=== PATIENT | female | born 1990 | race Caucasian/White ===

== ENCOUNTER 2016-10-06 21:08 | Emergency (ER) | payer BC ==
[~2016-10-06 21:08] MED LIST: COL100 PO; MOTRIN800 MG PO; ROX5 PO; ZOFRAN8 MG PO
[2016-10-07 00:12] VITALS: BP 113/75
== END 2016-10-07 00:14 | disposition home or self-care (01) ==
LOC: ED 21:08
DX: N83.209 Unspecified ovarian cyst, unspecified side (principal); J45.909 Unspecified asthma, uncomplicated; Z88.8 Allergy status to other drugs, medicaments and biological substances
CPT/HCPCS: J1885

== ENCOUNTER 2016-11-04 00:08 | Emergency (ER) | payer BC ==
[2016-11-04 04:12] VITALS: BP 112/58
== END 2016-11-04 04:12 | disposition home or self-care (01) ==
LOC: ED 00:08
DX: R10.32 Left lower quadrant pain (principal); J45.909 Unspecified asthma, uncomplicated; Z87.42 Personal history of other diseases of the female genital tract
CPT/HCPCS: J1885

== ENCOUNTER 2016-12-20 06:45 | Emergency (ER) | payer BC, OTHER ==
[~2016-12-20] VITALS: Ht 154.9 cm; Wt 73.5 kg
[2016-12-20 08:53] VITALS: BP 115/78
== END 2016-12-20 08:53 | disposition home or self-care (01) ==
LOC: ED 06:45
DX: J20.9 Acute bronchitis, unspecified (principal); J45.901 Unspecified asthma with (acute) exacerbation; Z79.51 Long term (current) use of inhaled steroids; Z88.8 Allergy status to other drugs, medicaments and biological substances
CPT/HCPCS: J1885; J7613; J7644; Q0162

== ENCOUNTER 2017-12-13 04:19 | Emergency (ER) | payer BC, OTHER ==
[~2017-12-13] VITALS: Ht 154.9 cm; Wt 82.2 kg
[2017-12-13 04:24] VITALS: Ht 154.9 cm; Wt 82.2 kg
[2017-12-13 04:56] VITALS: BP 124/75
== END 2017-12-13 04:56 | disposition home or self-care (01) ==
LOC: ED 04:19
DX: N39.0 Urinary tract infection, site not specified (principal); J45.909 Unspecified asthma, uncomplicated; Z88.6 Allergy status to analgesic agent

== ENCOUNTER 2017-12-25 21:48 | Emergency (ER) | payer BC, OTHER ==
[~2017-12-25] VITALS: Ht 154.9 cm; Wt 78.5 kg
[2017-12-25 21:57] VITALS: Ht 154.9 cm; Wt 78.5 kg
[2017-12-26 00:03] VITALS: BP 113/59
== END 2017-12-26 00:03 | disposition home or self-care (01) ==
LOC: ED 21:48
DX: J45.901 Unspecified asthma with (acute) exacerbation (principal); Z88.8 Allergy status to other drugs, medicaments and biological substances
CPT/HCPCS: J2930; J7620

== ENCOUNTER 2018-01-26 23:41 | Emergency (ER) | payer BC, OTHER ==
[~2018-01-26] VITALS: Ht 154.9 cm; Wt 86.2 kg
[2018-01-26 23:49] VITALS: Ht 154.9 cm; Wt 86.2 kg
[2018-01-27 01:57] LABS: BASOPHIL % 0.6 % (0-2); PLATELET COUNT 336 x10^3mcL (130-400)
[2018-01-27 01:58] LABS: RED CELL DISTRIBUTION WIDTH 15.2 % (11.5-14.5)
[2018-01-27 02:08] LABS: CALCIUM 8.9 mg/dL (8.5-10.1); CARBON DIOXIDE 27.9 mmol/L (21-32); CHLORIDE SERUM 103 mmol/L (98-107); CREATININE SERUM 0.7 mg/dL (0.6-1.0); GFR1 > 60 mL/min; GLUCOSE SERUM 89 mg/dL (74-106); POTASSIUM SERUM 3.9 mmol/L (3.5-5.1); SODIUM SERUM 136 mmol/L (136-145)
[2018-01-27 02:36] LABS: UA SPECIFIC GRAVITY <=1.005 (1.005-1.035); microscopic required? YES; urine erythrocyte 3+ (NEGATIVE)
[2018-01-27 06:39] VITALS: BP 107/63
== END 2018-01-27 06:39 | disposition home or self-care (01) ==
LOC: ED 23:41
PROVIDERS: Emergency Medicine
DX: O03.9 Complete or unspecified spontaneous abortion without complication (principal)
CPT/HCPCS: J2270

== ENCOUNTER 2018-05-16 22:14 | Emergency (ER) | payer BC, OTHER ==
[~2018-05-16] VITALS: Ht 154.9 cm; Wt 93.0 kg
[2018-05-16 22:41] VITALS: Ht 154.9 cm; Wt 93.0 kg
[2018-05-17 00:29] VITALS: BP 112/67
[2018-05-17 01:06] LABS: BASOPHIL % 0.6 % (0-2); PLATELET COUNT 318 x10^3mcL (130-400); RED CELL DISTRIBUTION WIDTH 14.4 % (11.5-14.5)
== END 2018-05-17 01:21 | disposition home or self-care (01) ==
LOC: ED 22:14
PROVIDERS: Emergency Medicine
DX: N93.8 Other specified abnormal uterine and vaginal bleeding (principal); J45.909 Unspecified asthma, uncomplicated; Z88.6 Allergy status to analgesic agent
CPT/HCPCS: 36415; J1885

== ENCOUNTER 2018-06-12 23:29 | Emergency (ER) | payer OTHER ==
[~2018-06-12] VITALS: Ht 157.5 cm; Wt 92.1 kg
[2018-06-12 23:39] VITALS: Ht 157.5 cm; Wt 92.1 kg
[2018-06-13 02:01] VITALS: BP 105/78
[2018-06-13 02:03] LABS: UA SPECIFIC GRAVITY 1.015 (1.005-1.035); microscopic required? YES; urine erythrocyte NEGATIVE (NEGATIVE)
== END 2018-06-13 02:01 | disposition home or self-care (01) ==
LOC: ED 23:29
PROVIDERS: Emergency Medicine
DX: N39.0 Urinary tract infection, site not specified (principal); J45.909 Unspecified asthma, uncomplicated; Z88.8 Allergy status to other drugs, medicaments and biological substances; Z98.890 Other specified postprocedural states
CPT/HCPCS: 87491; 87591; J1885

== ENCOUNTER 2018-07-12 00:11 | Emergency (ER) | payer BC, OTHER ==
[~2018-07-12] VITALS: Ht 154.9 cm; Wt 92.5 kg
[2018-07-12 00:17] VITALS: BP 107/48; Ht 154.9 cm; Wt 92.5 kg
== END 2018-07-12 02:08 | disposition home or self-care (01) ==
LOC: ED 00:11
DX: J45.901 Unspecified asthma with (acute) exacerbation (principal); N83.209 Unspecified ovarian cyst, unspecified side; Z88.6 Allergy status to analgesic agent
CPT/HCPCS: 87804; J7512; J7613; J7644; Q0092

== ENCOUNTER 2018-08-05 19:13 | Emergency (ER) | payer BC, OTHER ==
[~2018-08-05] VITALS: Ht 154.9 cm; Wt 93.6 kg
[2018-08-05 19:24] VITALS: Ht 154.9 cm; Wt 93.6 kg
[2018-08-05 22:00] VITALS: BP 125/86
== END 2018-08-05 22:00 | disposition home or self-care (01) ==
LOC: ED 19:13
DX: R21 Rash and other nonspecific skin eruption (principal); J45.909 Unspecified asthma, uncomplicated; Z88.6 Allergy status to analgesic agent
CPT/HCPCS: J7512; Q0163

== ENCOUNTER 2018-10-07 17:36 | Emergency (ER) | payer OTHER ==
[~2018-10-07] VITALS: Ht 154.9 cm; Wt 93.9 kg
[2018-10-07 17:39] VITALS: Ht 154.9 cm; Wt 93.9 kg
[2018-10-07 19:45] LABS: CARBON DIOXIDE 26.8 mmol/L (21-32); CHLORIDE SERUM 101 mmol/L (98-107); CREATININE SERUM 0.7 mg/dL (0.6-1.0); GFR1 > 60 mL/min; GLUCOSE SERUM 90 mg/dL (74-106); POTASSIUM SERUM 3.1 mmol/L (3.5-5.1); SODIUM SERUM 140 mmol/L (136-145)
[2018-10-07 19:52] LABS: ALKALINE PHOSPHATASE 71 U/L (46-116); ALT/SGPT 36 U/L (14-59); AST/SGOT 24 U/L (15-37); BILIRUBIN TOTAL 0.4 mg/dL (0.20-1.00); TOTAL PROTEIN, SERUM 8.2 g/dL (6.4-8.2)
[2018-10-07 19:58] LABS: BASOPHIL % 0.2 % (0-2); PLATELET COUNT 302 x10^3mcL (130-400); RED CELL DISTRIBUTION WIDTH 14.7 % (11.5-14.5)
[2018-10-07 22:36] VITALS: BP 110/77
== END 2018-10-07 22:36 | disposition home or self-care (01) ==
LOC: ED 17:36
PROVIDERS: Emergency Medicine
DX: N83.202 Unspecified ovarian cyst, left side (principal); N83.201 Unspecified ovarian cyst, right side; R10.30 Lower abdominal pain, unspecified; J45.909 Unspecified asthma, uncomplicated; Z88.6 Allergy status to analgesic agent
CPT/HCPCS: J1885; J2270; J2405; Q9967

== ENCOUNTER 2018-11-26 15:01 | Emergency (ER) | payer OTHER ==
[~2018-11-26] VITALS: Ht 154.9 cm; Wt 96.6 kg
[2018-11-26 15:13] VITALS: Ht 154.9 cm; Wt 96.6 kg
[2018-11-26 18:43] VITALS: BP 127/83
== END 2018-11-26 18:43 | disposition home or self-care (01) ==
LOC: ED 15:01
DX: K11.20 Sialoadenitis, unspecified (principal); I88.9 Nonspecific lymphadenitis, unspecified; J45.909 Unspecified asthma, uncomplicated; Z98.890 Other specified postprocedural states; Z88.6 Allergy status to analgesic agent
CPT/HCPCS: J1885; J2270; Q0162

== ENCOUNTER 2019-03-07 12:41 | Emergency (ER) | payer OTHER ==
[~2019-03-07] VITALS: Ht 154.9 cm; Wt 89.4 kg
[2019-03-07 12:59] VITALS: Ht 154.9 cm; Wt 89.4 kg
[2019-03-07 15:16] VITALS: BP 120/75
== END 2019-03-07 15:16 | disposition home or self-care (01) ==
LOC: ED 12:41
DX: O21.9 Vomiting of pregnancy, unspecified (principal); J45.909 Unspecified asthma, uncomplicated; Z88.6 Allergy status to analgesic agent; Z3A.01 Less than 8 weeks gestation of pregnancy

== ENCOUNTER 2019-05-21 00:08 | Emergency (ER) | payer OTHER ==
[~2019-05-21] VITALS: Ht 154.9 cm; Wt 89.8 kg
[2019-05-21 00:14] VITALS: Ht 154.9 cm; Wt 89.8 kg
[2019-05-21 01:51] LABS: BASOPHIL % 0.4 % (0-2); PLATELET COUNT 323 x10^3mcL (130-400); RED CELL DISTRIBUTION WIDTH 14.8 % (11.5-14.5)
[2019-05-21 02:07] LABS: CALCIUM 8.5 mg/dL (8.5-10.1); CARBON DIOXIDE 29.8 mmol/L (21-32); CHLORIDE SERUM 106 mmol/L (98-107); CREATININE SERUM 0.8 mg/dL (0.6-1.0); GFR1 > 60 mL/min; GLUCOSE SERUM 89 mg/dL (74-106); POTASSIUM SERUM 3.5 mmol/L (3.5-5.1); SODIUM SERUM 142 mmol/L (136-145)
[2019-05-21 02:12] LABS: ALBUMIN 3.6 g/dL (3.4-5.0); ALKALINE PHOSPHATASE 87 U/L (46-116); ALT/SGPT 35 U/L (14-59); AMYLASE 56 U/L (25-115); AST/SGOT 12 U/L (15-37); BILIRUBIN TOTAL 0.24 mg/dL (0.20-1.00); LIPASE 148 IU/L (73-393); TOTAL PROTEIN, SERUM 7.8 g/dL (6.4-8.2)
[2019-05-21 05:26] VITALS: BP 108/74
== END 2019-05-21 05:26 | disposition home or self-care (01) ==
LOC: ED 00:08
PROVIDERS: Emergency Medicine
DX: O03.9 Complete or unspecified spontaneous abortion without complication (principal); J45.909 Unspecified asthma, uncomplicated
CPT/HCPCS: J2270

== ENCOUNTER 2019-06-28 17:03 | Emergency (ER) | payer OTHER ==
[~2019-06-28] VITALS: Ht 154.9 cm; Wt 87.1 kg
[2019-06-28 17:29] VITALS: Ht 154.9 cm; Wt 87.1 kg
[2019-06-28 18:10] LABS: BASOPHIL % 0.3 % (0-2); PLATELET COUNT 332 x10^3mcL (130-400); RED CELL DISTRIBUTION WIDTH 14.1 % (11.5-14.5)
[2019-06-28 19:31] LABS: microscopic required? YES; urine erythrocyte 3+ (NEGATIVE)
[2019-06-28 22:04] VITALS: BP 114/65
== END 2019-06-28 22:04 | disposition home or self-care (01) ==
LOC: ED 17:03
PROVIDERS: Emergency Medicine
DX: N83.202 Unspecified ovarian cyst, left side (principal); N93.9 Abnormal uterine and vaginal bleeding, unspecified; J45.909 Unspecified asthma, uncomplicated
CPT/HCPCS: 36415; J1885

== ENCOUNTER 2019-06-30 05:04 | Inpatient (IN) | payer OTHER ==
[~2019-06-30] VITALS: Ht 154.9 cm; Wt 88.5 kg
[2019-06-30 05:29] VITALS: Ht 154.9 cm; Wt 88.5 kg
--- NOTE | 2019-06-30 07:05 | NUR ---
PT AMBULATORY TO HALLWAY 1 BED. PT C/O BLQ ABD PAIN DENIES N/V/D PT IN NO APPARENT DISTRESS AWAITING MD OLIVA WILL MONITOR
[2019-06-30 07:12] LABS: BASOPHIL % 0.3 % (0-2); PLATELET COUNT 324 x10^3mcL (130-400); RED CELL DISTRIBUTION WIDTH 14.5 % (11.5-14.5)
[2019-06-30 07:37] LABS: CALCIUM 8.5 mg/dL (8.5-10.1); CARBON DIOXIDE 28.8 mmol/L (21-32); CHLORIDE SERUM 104 mmol/L (98-107); CREATININE SERUM 0.8 mg/dL (0.6-1.0); GFR1 > 60 mL/min; GLUCOSE SERUM 92 mg/dL (74-106); POTASSIUM SERUM 3.4 mmol/L (3.5-5.1); SODIUM SERUM 140 mmol/L (136-145)
[2019-06-30 07:42] LABS: ALBUMIN 3.8 g/dL (3.4-5.0); ALKALINE PHOSPHATASE 83 U/L (46-116); ALT/SGPT 32 U/L (14-59); AST/SGOT 17 U/L (15-37); BILIRUBIN TOTAL 0.19 mg/dL (0.20-1.00); TOTAL PROTEIN, SERUM 7.7 g/dL (6.4-8.2)
--- NOTE | 2019-06-30 08:40 | NUR ---
PT MOVED TO ORTHO ROOM, IV ESTABLISHED, MEDICATED FOR PAIN ORDERED BY MD CARLOS DANIELS. PT WITH NO RELIEF CRYING STATES PAIN IS 10/10. DR PIERSON MADE AWARE. NO NEW ORDERS AT THIS TIME.
--- NOTE | 2019-06-30 08:54 | NUR ---
PORTABLE CXR AT BEDSIDE. PT MEDICATED WITH FENTANYL 75MCG IVP ORDERED BY MD. WILL MONITOR PT
--- NOTE | 2019-06-30 09:15 | NUR ---
PT SITTING IN BED APPEARS MORE COMFORTABLE. PT NO LONGER CRYING ON HER CELL PHONE DEVICE. WILL CONTINUE TO MONITOR
[2019-06-30] MEDS ORDERED: NORCO1 TA2 PO (10:06)
[2019-06-30] MEDS ORDERED: PROAIR HFA8.5 GM (10:07)
[2019-06-30] MEDS ORDERED: SYMBICORT1 AE3 (10:07)
--- NOTE | 2019-06-30 10:15 | NUR ---
REPORT GIVEN TO ANG MARTINEZ RESUMING CARE OF PT
--- NOTE | 2019-06-30 10:15 | NUR ---
REPORT TAKEN FROM [facility] NURSE, PATIENT ROOM PREP COMPLETE, PENDING PATIENT ARRIVAL TO UNIT
[2019-06-30 10:17] LABS: microscopic required? NO
--- NOTE | 2019-06-30 10:20 | NUR ---
PT TRANSPORTED TO MED SURG FLOOR VIA W/C IN NO DISTRESS BY LITTLE ESCALERA. ANG MARTINEZ RESUMING CARE OF PT
--- NOTE | 2019-06-30 10:20 | NUR ---
PATIENT ARRIVED TO THE UNIT AT THIS TIME, IN WHEELCHAIR BUT AMBULATORY TO THE BED.
[2019-06-30 10:32] LABS: UA SPECIFIC GRAVITY >=1.030 (1.005-1.035); urine erythrocyte NEGATIVE (NEGATIVE)
[2019-06-30 10:51] VITALS: BP 113/69
[2019-06-30 10:52] LABS: CHOLESTEROL/HDL RATIO 3.2; MAGNESIUM 2.3 mg/dL (1.8-2.4); PHOSPHOROUS 3.4 mg/dL (2.5-4.9)
[2019-06-30 10:57] LABS: T3 TOTAL 1.16 ng/mL
[2019-06-30 11:26] LABS: FREE T4 1.07 ng/dL (0.76-1.46); FREE THYROXINE INDEX 3.2 ug/dL (1.4-4.5); T4(THYROXINE) 8.5 ug/dL (4.7-13.3)
[2019-06-30 12:53] VITALS: BP 113/69
[2019-06-30 16:14] VITALS: BP 96/52
--- NOTE | 2019-06-30 19:07 | NUR ---
REPORT GIVEN TO GUEST EXPERIENCE REPRESENTATIVE NURSE CARE ENDORSED
--- NOTE | 2019-06-30 19:59 | NUR ---
Awake and verbally responsive. No respiratory distress noted on room air. Denies pain at this time. Denies n/v. SCD in place. Will cont.to monitor. Calll light within reach.
[2019-06-30 20:44] VITALS: BP 103/62
--- NOTE | 2019-06-30 20:59 | NUR ---
Pt. up and ambulating. Epressing wanting to go home. Stated will sign out AMA. made aware. Will speak with the patient.
--- NOTE | 2019-06-30 21:42 | NUR ---
Spoke with the patient and decided to stay for the night. C/o lower abdominal pain, medicated with norco 1 tab as ordered. Will cont.to monitor.
--- NOTE | 2019-07-01 04:39 | NUR ---
Afebrile. No significant change in condition noted. Pain controlled. Denies dysuria or hematuria. In no apparent distress.
[2019-07-01 05:18] VITALS: BP 92/54
[2019-07-01 07:13] LABS: BASOPHIL % 0.8 % (0-2); PLATELET COUNT 278 x10^3mcL (130-400); RED CELL DISTRIBUTION WIDTH 14.4 % (11.5-14.5)
[2019-07-01 07:36] LABS: CALCIUM 8.2 mg/dL (8.5-10.1); CARBON DIOXIDE 26.9 mmol/L (21-32); CHLORIDE SERUM 106 mmol/L (98-107); CREATININE SERUM 0.7 mg/dL (0.6-1.0); GFR1 > 60 mL/min; GLUCOSE SERUM 80 mg/dL (74-106); POTASSIUM SERUM 3.5 mmol/L (3.5-5.1); SODIUM SERUM 140 mmol/L (136-145)
[2019-07-01 08:50] VITALS: BP 102/55
--- NOTE | 2019-07-01 09:24 | NUR ---
PATIENT RECEIVED SLEEPING AND SEEMS COMFORTABLE AT THIS TIME BUT IS NOW REQUESTING NORCO FOR PAIN. GAVE NORCO AND HER OTHER MEDICATIONS ORDERED AND WILL MONTIOE FOR EFFECTIVENESS. PATEINT IS GROSSLY OBESE AND WITH CLEAR BREATH SOUND AND BOWEL SOUNDS ACTIVE. SHE STATES THE PAIN IS TO HER LOWER ABDOMEN AND DUE TO OVARIAN CYSTS. SHE HAS BEEN TREATED IN THE PAST FOR THIS AND HAS APPARENTLY BEEN NON COMPLIANT WITH THE MEDICATION REGIMENT. PATIENT HAS SOME TRACE EDEMA TO THE LOWER EXTREMITES AND THE ABDOMEN IS DISTENDED AND LARGE AND MODERATELY FIRM. VITALS AT THIS TIME AT 98.0, 78, 18, 92/54, 98% ON ROOMAIR. CHEST XRAY WAS NEGATIVFE AND HAS HX OF ASTHMA BUT NO WHEEZING OR SHORTNESS OF BREATH AT THIS TIME.
[2019-07-01] MEDS ORDERED: MOT800 PO (11:16)
--- NOTE | 2019-07-01 11:29 | NUR ---
PATIENT REQUESTED MORE PAIN MEDICAITON AND ADVISE DTHAT NORCO WAS NOT DUE TILL AROUND NOON. PATIENT HAS BEEN DISCHARGED AND STATES SHE HAS NO RIDE TILL AROUNG EIGHT TONIGHT. WILL CONTINUE TO MONITOR.
[2019-07-01 11:48] VITALS: BP 102/55
[2019-07-01 12:13] VITALS: BP 102/59
--- NOTE | 2019-07-01 12:47 | NUR ---
PATIENT REQUESTED PAIN MEDICATION FOR PAIN TO THE LOWER ABDOMEN. OFFERED AND GAVE NORCO ORDERED.
--- NOTE | 2019-07-01 12:59 | NUR ---
PATIENT HAS NO PADILLA FOR HER HOME WITH HER AND THEY LEAVE OUT SENDING HER HOME BY A VOUCHER. WILL MONITOR FOR EFFECTIVENESS OF THE NORCO GIVEN. PATIENT STATES SHE IS ON A LOW CARB DIET. PER PATIENT SHE RELAYED THIS TO THE GRAY MIXING OPERATOR.
--- NOTE | 2019-07-01 17:37 | NUR ---
SPOUSE CAME IN AT 1630 AND PATIENT WANTS TO GO HOME. REMOVED IV AND WENT OVER PAPERWORK AND DISCHARGE TO HOME WITH ALL BELONINGS.
== END 2019-07-01 17:15 | disposition home or self-care (01) | DRG 532 ==
LOC: ED 05:04 → MU 09:51
PROVIDERS: ADMIT General Practice
DX: N83.209 Unspecified ovarian cyst, unspecified side (principal); E66.9 Obesity, unspecified; J45.909 Unspecified asthma, uncomplicated; Z68.36 Body mass index [BMI] 36.0-36.9, adult; Z71.3 Dietary counseling and surveillance
CPT/HCPCS: 84439; G0378; J2270; J2405; J3010; J7030; Q0092

== ENCOUNTER 2020-02-07 21:24 | Emergency (ER) | payer OTHER ==
[~2020-02-07] VITALS: Ht 154.9 cm; Wt 81.6 kg
[~2020-02-07 21:24] MED LIST changes: +MOT800 PO; +NORCO1 TA2 PO; +PROAIR HFA8.5 GM; +SYMBICORT1 AE3
[2020-02-07 21:38] VITALS: Ht 154.9 cm; Wt 81.6 kg
[2020-02-08 02:52] VITALS: BP 101/69
== END 2020-02-08 02:52 | disposition home or self-care (01) ==
LOC: ED 21:24
DX: N83.202 Unspecified ovarian cyst, left side (principal); N83.201 Unspecified ovarian cyst, right side; J45.909 Unspecified asthma, uncomplicated
CPT/HCPCS: J1885; Q0092

== ENCOUNTER 2020-03-18 17:27 | Emergency (ER) | payer BC, OTHER ==
[~2020-03-18] VITALS: Ht 154.9 cm; Wt 81.6 kg
[2020-03-18 18:18] VITALS: Ht 154.9 cm; Wt 81.6 kg
[2020-03-18 19:37] LABS: BASOPHIL % 0.5 % (0-2); PLATELET COUNT 318 x10^3mcL (130-400)
[2020-03-18 19:38] LABS: RED CELL DISTRIBUTION WIDTH 14.7 % (11.5-14.5)
[2020-03-18 20:03] LABS: CALCIUM 9.2 mg/dL (8.5-10.1); CARBON DIOXIDE 30.1 mmol/L (21-32); CHLORIDE SERUM 102 mmol/L (98-107); CREATININE SERUM 0.8 mg/dL (0.6-1.0); GFR1 > 60 mL/min; GLUCOSE SERUM 81 mg/dL (74-106); POTASSIUM SERUM 4.3 mmol/L (3.5-5.1); SODIUM SERUM 137 mmol/L (136-145)
[2020-03-18 20:09] LABS: ALBUMIN 3.8 g/dL (3.4-5.0); ALKALINE PHOSPHATASE 86 U/L (46-116); ALT/SGPT 28 U/L (14-59); AST/SGOT 17 U/L (15-37); BILIRUBIN TOTAL 0.22 mg/dL (0.20-1.00); TOTAL PROTEIN, SERUM 8.1 g/dL (6.4-8.2)
[2020-03-18 21:13] LABS: microscopic required? NO
[2020-03-18 21:29] LABS: UA SPECIFIC GRAVITY 1.025 (1.005-1.035); urine erythrocyte NEGATIVE (NEGATIVE)
[2020-03-19 00:21] VITALS: BP 117/80
== END 2020-03-19 00:21 | disposition home or self-care (01) ==
LOC: ED 17:27
PROVIDERS: Emergency Medicine
DX: R10.30 Lower abdominal pain, unspecified (principal); R10.2 Pelvic and perineal pain; R07.89 Other chest pain; J45.909 Unspecified asthma, uncomplicated; E66.9 Obesity, unspecified; Z68.34 Body mass index [BMI] 34.0-34.9, adult
CPT/HCPCS: J1885; Q0092

== ENCOUNTER 2020-05-06 11:11 | Emergency (ER) | payer BC, OTHER ==
[~2020-05-06] VITALS: Ht 154.9 cm; Wt 81.2 kg
[2020-05-06 11:48] VITALS: Ht 154.9 cm; Wt 81.2 kg
[2020-05-06 14:16] LABS: BASOPHIL % 0.3 % (0-2); PLATELET COUNT 303 x10^3mcL (130-400); RED CELL DISTRIBUTION WIDTH 14.2 % (11.5-14.5)
[2020-05-06 14:20] LABS: CARBON DIOXIDE 30.8 mmol/L (21-32); CHLORIDE SERUM 102 mmol/L (98-107); CREATININE SERUM 0.7 mg/dL (0.6-1.0); GFR1 > 60 mL/min; GLUCOSE SERUM 86 mg/dL (74-106); POTASSIUM SERUM 3.7 mmol/L (3.5-5.1); SODIUM SERUM 140 mmol/L (136-145)
[2020-05-06 14:25] LABS: ALBUMIN 4.1 g/dL (3.4-5.0); ALKALINE PHOSPHATASE 90 U/L (46-116); ALT/SGPT 25 U/L (14-59); AST/SGOT 17 U/L (15-37); BILIRUBIN TOTAL 0.22 mg/dL (0.20-1.00)
[2020-05-06 14:26] LABS: TOTAL PROTEIN, SERUM 8.7 g/dL (6.4-8.2)
[2020-05-06 15:55] LABS: UA SPECIFIC GRAVITY 1.025 (1.005-1.035); microscopic required? YES; urine erythrocyte TRACE (NEGATIVE)
[2020-05-06 16:58] VITALS: BP 113/67
== END 2020-05-06 16:58 | disposition home or self-care (01) ==
LOC: ED 11:11
PROVIDERS: Emergency Medicine
DX: R10.30 Lower abdominal pain, unspecified (principal); J45.909 Unspecified asthma, uncomplicated

== ENCOUNTER 2020-06-01 11:09 | Emergency (ER) | payer BC, OTHER ==
[~2020-06-01] VITALS: Ht 154.9 cm; Wt 79.8 kg
[2020-06-01 11:15] VITALS: Ht 154.9 cm; Wt 79.8 kg
[2020-06-01 13:03] LABS: CALCIUM 8.6 mg/dL (8.5-10.1); CARBON DIOXIDE 27.6 mmol/L (21-32); CHLORIDE SERUM 103 mmol/L (98-107); CREATININE SERUM 0.7 mg/dL (0.6-1.0); GFR1 > 60 mL/min; GLUCOSE SERUM 100 mg/dL (74-106); SODIUM SERUM 138 mmol/L (136-145)
[2020-06-01 13:07] LABS: ALBUMIN 3.6 g/dL (3.4-5.0); ALKALINE PHOSPHATASE 74 U/L (46-116); ALT/SGPT 22 U/L (14-59); AST/SGOT 15 U/L (15-37); BILIRUBIN TOTAL 0.4 mg/dL (0.20-1.00); LIPASE 77 IU/L (73-393); TOTAL PROTEIN, SERUM 7.4 g/dL (6.4-8.2)
[2020-06-01 13:10] LABS: BASOPHIL % 0.5 % (0-2); PLATELET COUNT 283 x10^3mcL (130-400); RED CELL DISTRIBUTION WIDTH 13.9 % (11.5-14.5)
[2020-06-01 14:07] LABS: microscopic required? NO
[2020-06-01 14:17] LABS: UA SPECIFIC GRAVITY 1.025 (1.005-1.035); urine erythrocyte NEGATIVE (NEGATIVE)
[2020-06-01 20:23] VITALS: BP 110/66
== END 2020-06-01 20:23 | disposition home or self-care (01) ==
LOC: ED 11:09
PROVIDERS: Emergency Medicine
DX: N76.0 Acute vaginitis (principal); R10.2 Pelvic and perineal pain; J45.909 Unspecified asthma, uncomplicated
CPT/HCPCS: 87491; 87591; J0696; J1630; J1885; J2270; J2405; Q9967

== ENCOUNTER 2020-06-08 11:12 | Emergency (ER) | payer BC, OTHER, SELFPAY ==
[~2020-06-08] VITALS: Ht 154.9 cm; Wt 79.4 kg
[2020-06-08 11:29] VITALS: BP 105/69; Ht 154.9 cm; Wt 79.4 kg
== END 2020-06-08 12:21 | disposition home or self-care (01) ==
LOC: ED 11:12
DX: J45.901 Unspecified asthma with (acute) exacerbation (principal); M54.9 Dorsalgia, unspecified

== ENCOUNTER 2020-06-17 11:59 | Emergency (ER) | payer BC, OTHER ==
[~2020-06-17] VITALS: Ht 154.9 cm; Wt 82.6 kg
[2020-06-17 12:53] VITALS: Ht 154.9 cm; Wt 82.6 kg
[2020-06-17 16:20] LABS: BASOPHIL % 0.5 % (0.2-1.3); PLATELET COUNT 332 x10^3mcL (179-408); RED CELL DISTRIBUTION WIDTH 13.8 % (12.3-17.7)
[2020-06-17 16:27] LABS: CALCIUM 9.2 mg/dL (8.5-10.1); CARBON DIOXIDE 33.9 mmol/L (21-32); CHLORIDE SERUM 102 mmol/L (98-107); CREATININE SERUM 0.7 mg/dL (0.6-1.0); GFR1 > 60 mL/min; GLUCOSE SERUM 98 mg/dL (74-106); POTASSIUM SERUM 3.8 mmol/L (3.5-5.1); SODIUM SERUM 139 mmol/L (136-145)
[2020-06-17 16:33] LABS: ALBUMIN 3.9 g/dL (3.4-5.0); ALKALINE PHOSPHATASE 97 U/L (46-116); ALT/SGPT 28 U/L (14-59); AST/SGOT 10 U/L (15-37); BILIRUBIN TOTAL 0.21 mg/dL (0.20-1.00); LIPASE 133 IU/L (73-393)
[2020-06-17 17:10] VITALS: BP 110/71
== END 2020-06-17 17:10 | disposition home or self-care (01) ==
LOC: ED 11:59
PROVIDERS: Emergency Medicine
DX: K29.70 Gastritis, unspecified, without bleeding (principal); S39.91XA Unspecified injury of abdomen, initial encounter; J45.909 Unspecified asthma, uncomplicated; X58.XXXA Exposure to other specified factors, initial encounter; Y93.89 Activity, other specified; Y92.89 Other specified places as the place of occurrence of the external cause; Y99.8 Other external cause status